=== PATIENT | female | born 1950 | race Caucasian/White ===

== ENCOUNTER 2022-12-30 13:26 | Emergency (ER) | payer MEDICARE, MEDICAID ==
[~2022-12-30] VITALS: Ht 165.1 cm; Wt 53.1 kg
[2022-12-30 14:05] VITALS: TEMP 98.7; O2SAT 98
[2022-12-30 14:45] VITALS: BP 150/75; PULSE 58; RESP 22
[2022-12-30] MEDS ORDERED: KETOROLAC 30MG/ML VIAL IM ONE (14:45)
[2022-12-30] MEDS ORDERED: HYDR-4001 MT (17:03)
[2022-12-30] MEDS ORDERED: IBUP-2029 MT (17:03)
[2022-12-30] MEDS ORDERED: T3 PO (17:18)
== END 2022-12-30 18:25 | disposition home or self-care (01) ==
LOC: ER 15:13
DX: S62.101A Fracture of unspecified carpal bone, right wrist, initial encounter for closed fracture (principal); W18.39XA Other fall on same level, initial encounter; Y93.89 Activity, other specified; Y92.89 Other specified places as the place of occurrence of the external cause; Y99.8 Other external cause status
CPT/HCPCS: 99284; 71101; 73030; 73110; 29125; 96372; J1885